=== PATIENT | male | born 1980 | race Caucasian/White ===

== ENCOUNTER 2020-08-10 17:23 | Emergency (ER) | payer OTHER, SELFPAY ==
--- NOTE | ~2020-08-10 | XR_ITS ---
EXAMINATION: XR abdomen/kub 1V; CT abdomen pelvis wo con DATE: 08/10/2020 18:04 INDICATION: Right flank pain TECHNIQUE: 1. Computed tomography (CT) of the abdomen and pelvis was performed without intravenous contrast. Aut omated exposure control and iterative reconstruction technique were employed. The dose-length product was 340.03 mGy-cm. 2. Supine AP view of the abdomen and pelvis was obtained. COMPARISON: None FINDINGS: CT: Mild discoid atelectasis at the lingula. Heart size is normal. No pericardial or pleural effusion. Li lorna, gallbladder, spleen, pancreas and bilateral adrenal glands are normal. 1 mm nonobstructing stone in a lower pole calyx of the right kidney. Bilateral kidneys and ureters are otherwise normal with n o hydronephrosis or other urolithiasis. There is moderate colonic diverticulosis with a sigmoid predominance. There is no adjacent inflammatory change to suggest diverticulitis. Small bowel and appendix are normal.. Bladder is normal. Small right and moderate-sized left fat-containing bila teral inguinal hernias. No free intraperitoneal gas or fluid. No pathologically enlarged abdominal or pelvic lymphadenopathy. Mild lumbar dextroscoliosis. KUB: The tiny stone at the lower pole of the right kidney is unable to be distinguished on the plain radio graphs likely due to its small size. Phlebolith in the right hemipelvis. Bone island at the left post erior iliac spine. Normal bowel gas pattern. IMPRESSION: 1. 1 mm nonobstructing right renal stone. No other acute and intra-abdominal/pelvic process. 2. Moderate diverticulosis. 3. Normal appendix. Reviewed, dictated and finalized at [facility]. STIC SPECIALIST IMPRESSION: 1. 1 mm nonobstructing right renal stone. No other acute and intra-abdominal/pe lvic process. 2. Moderate diverticulosis. 3. Normal appendix.
--- NOTE | ~2020-08-10 | CT_ITS ---
EXAMINATION: CT abdomen pelvis wo con DATE: 08/10/2020 18:04 INDICATION: Right flank pain TECHNIQUE: 1. Computed tomography (CT) of the abdomen and pelvis was performed without intravenous contrast. Aut omated exposure control and iterative reconstruction technique were employed. The dose-length product was 340.03 mGy-cm. 2. Supine AP view of the abdomen and pelvis was obtained. COMPARISON: None FINDINGS: CT: Mild discoid atelectasis at the lingula. Heart size is normal. No pericardial or pleural effusion. Li lorna, gallbladder, spleen, pancreas and bilateral adrenal glands are normal. 1 mm nonobstructing stone in a lower pole calyx of the right kidney. Bilateral kidneys and ureters are otherwise normal with n o hydronephrosis or other urolithiasis. There is moderate colonic diverticulosis with a sigmoid predo minance. There is no adjacent inflammatory change to suggest diverticulitis. Small bowel and appendix are normal.. Bladder is normal. Small right and moderate-sized left fat-containing bilateral inguina l hernias. No free intraperitoneal gas or fluid. No pathologically enlarged abdominal or pelvic lymph adenopathy. Mild lumbar dextroscoliosis. KUB: The tiny stone at the lower pole of the right kidney is unable to be distinguished on the plain radio graphs likely due to its small size. Phlebolith in the right hemipelvis. Bone island at the left post erior iliac spine. Normal bowel gas pattern. IMPRESSION: 1. 1 mm nonobstructing right renal stone. No other acute intra-abdominal/pelvic process. 2. Moderate diverticulosis. 3. Normal appendix. Reviewed, dictated and finalized at [facility]. TASTER
[2020-08-10 17:27] VITALS: BP 138/87; PULSE 87; RESP 16; TEMP 36.5; O2SAT 100
[2020-08-10 17:44] LABS: Basophils Absolute Auto 0.1 K/mm3 (0.0-0.1); Basophils Percent Auto 1.3 % (0.2-1.2); Eosinophils Absolute Auto 0.4 K/mm3 (0-0.3); Hematocrit 48.5 % (42.0-52.0); Hemoglobin 16.4 g/dL (14.0-18.0); Immature Granulocyte Absolute 0.08 K/mm3 (0.00-0.031); Immature Granulocyte Percent A 0.9 % (0-0.5); Lymphocytes Absolute Auto 2.56 K/mm3 (0.9-3.2); Lymphocytes Percent Auto 29.2 % (18.3-44.2); Mean Corpuscular HGB Conc 33.8 g/dl (32-36); Mean Corpuscular Hemoglobin 29.7 pg (26-34); Mean Corpuscular Volume 87.7 fl (80-100); Mean Platelet Volume 9.1 fl (7.4-10.4); Monocytes Percent Auto 10.8 % (2.6-8.5); Neutrophils Absolute Auto 4.7 K/mm3 (1.3-6.7); Neutrophils Percent Auto 53.8 % (45.5-73.1); Platelet Count Result 364 k/mm3 (150-375); Red Blood Count 5.53 M/mm3 (4.6-6.20); Red Cell Distribution Width 12.9 % (11.5-14.5); White Blood Count 8.8 K/mm3 (4.5-10.0)
[2020-08-10 17:48] LABS: Add Urine Microscopic? YES; Appearance Urine Clear (Clear); Bilirubin Urine Negative (Negative); Blood Urine 1+ (Negative); Color Urine Yellow (Yellow); Glucose Urine UA Negative (Negative); Ketones Urine Negative (Negative); Leukocyte Esterase Ur Negative LEU/UL (Negative); Nitrate Urine Negative (Negative); Protein Urine Negative (Negative); RBC Urine 0-2 /hpf (0-2); Specific Grav Ur 1.019 (1.001-1.035); Urobilinogen Urine Negative mg/dL (<2.0); WBC Urine 0-3 /hpf
--- NOTE | 2020-08-10 17:48 | ED.BACK ---
HPI - Back Pain/Injury General Chief Complaint: Abdominal Pain Stated Complaint: flank pain Time Seen by Provider: 08/10/20 17:36 Source: patient Mode of arrival: ambulatory Limitations: no limitations History of Present Illness HPI Narrative: This patient is a 40 year old male who presents for evaluation of right lower back pain. He states he has been having this pain intermittently for 1 month, and the pain became constant on Wednesday. He is unsure of any exacerbating factors. He has associated nausea and hot flashes. He denies any urinary complaints. He has not taken anything for pain since yesterday. HE states he has been trying to be evaluated for this pain in [facility] for 1 month and he was in the ER yesterday. His pain is currently 02/27. MD elicited complaint: back pain Timing: constant Location: right flank Radiation: abdomen (right lower abdomen) Related Data Allergies Allergy/AdvReac Type Severity Reaction Status Date / Time No Known Allergies Allergy Mild Verified 08/10/20 17:37 Review of Systems Review of Systems: All systems reviewed & are unremarkable except as noted in HPI and below Constitutional: Constitutional: Denies chills and Denies fever(s) Cardiovascular: Cardiovascular: Denies chest pain Respiratory: Respiratory: Denies cough and Denies dyspnea Gastrointestinal: Gastrointestinal: Reports abdominal pain, Denies diarrhea, Reports nausea and Denies vomiting Genitourinary: Genitourinary: Denies hematuria and Denies urinary frequency Musculoskeletal: Musculoskeletal: Reports back pain [facility] Past Medical History Medical History (Updated 08/10/20 @ 18:42 by Alesia Sandra MD) Diverticulitis History of esophageal dilatation Surgical History Surgical History (Updated 08/10/20 @ 17:52 by Alesia Sandra MD) H/O colonoscopy Social History Social History (Updated 08/10/20 @ 17:53 by Alesia Sandra MD) Smoking status: Current every day smoker Alcohol intake: current Alcohol use details: occasionally Substance use type: marijuana and methamphetamine Last use: meth 3 days ago, Gender identity (if verbalized by the patient): Male Exam Const: General: no acute distress and alert Orientation/consciousness: patient oriented x3 Eyes: EOM: EOMs intact bilaterally Resp: Effort & Inspection: normal respiratory effort, no retractions and no use of accessory muscles Auscultation: clear to auscultation bilaterally Cardio: Rate: regular rate Rhythm: regular rhythm Heart sounds: no murmurs GI: GI Palp: Yes Soft to palpation, No Tenderness to palpation present (GI) and No Guarding due to palpation present (GI) Auscultation: normal bowel sounds Back/Spine/Pelvis: Back: no CVA tenderness Skin: General skin exam: normal color Rashes: no rashes Neuro: General: patient oriented x3 and moves all extremities Course Reevaluation(s) Reevaluation #1: I discussed with patient CT results. Will discharge home for his musculoskeletal pain. Date: 08/10/20 Time: 18:41 Vital Signs Vital signs: Vital Signs Temperature 97.7 F 08/10/20 17:27 Pulse Rate 87 08/10/20 17:27 Respiratory Rate 16 08/10/20 17:27 Blood Pressure 138/87 08/10/20 17:27 Pulse Oximetry 100 08/10/20 17:27 Temperature 97.7 F 08/10/20 17:27 Pulse Rate 87 08/10/20 17:27 Respiratory Rate 16 08/10/20 17:27 Blood Pressure 138/87 08/10/20 17:27 Pulse Oximetry 100 08/10/20 17:27 MDM - Back Pain/Injury Lab Data Attestation: I reviewed the patient's lab results. Result diagrams: 08/10/20 17:38 08/10/20 17:38 Labs: Lab Results 08/10/20 08/10/20 08/10/20 Range/Units 17:38 17:38 17:38 WBC 8.8 (4.5-10.0) K/mm3 RBC 5.53 (4.6-6.20) M/mm3 Hgb 16.4 (14.0-18.0) g/dL Hct 48.5 (42.0-52.0) % MCV 87.7 (80-100) fl MCH 29.7 (26-34) pg MCHC 33.8 (32-36) g/dl RDW 12.9 (11.5-14.5) % Plt Count 364
[2020-08-10 17:56] LABS: Alanine Aminotransferase 40 U/L (4-50); Albumin Level 4.4 g/dL (3.5-5.1); Alkaline Phosphatase 63 U/L (38-126); Anion Gap 10 mmol/L (8-16); Aspartate Amino Transferase 30 U/L (17-59); Bilirubin,Total 0.5 mg/dL (0.2-1.3); Blood Urea Nitrogen 12 mg/dL (9-20); Calcium 9.4 mg/dL (8.4-10.2); Carbon Dioxide 26 mmol/L (22-30); Chloride 104 mmol/L (98-107); Estimated CRCL calculation 109 ml/min; Estimated Glomerular Filt Rate > 60; Glucose 117 mg/dL (75-110); Lipase 68 U/L (23-300); Potassium 4.1 mmol/L (3.4-5.0); Sodium 140 mmol/L (137-145)
[2020-08-10 18:52] VITALS: BP 124/79; PULSE 94; RESP 15; O2SAT 100
== END 2020-08-10 18:53 | disposition home or self-care (01) ==
PROVIDERS: Emergency Medicine; Emergency Provider General Practice
DX: M54.5 Low back pain (principal); N20.0 Calculus of kidney; K57.90 Diverticulosis of intestine, part unspecified, without perforation or abscess without bleeding; F17.200 Nicotine dependence, unspecified, uncomplicated
CPT/HCPCS: 36415; 74018; 74176; 80053; 81001; 83690; 85025; 96365; 99284; J0131

== ENCOUNTER 2020-09-06 14:51 | Emergency (ER) | payer OTHER, SELFPAY ==
--- NOTE | ~2020-09-06 | XR_ITS ---
XR abdomen/kub 1V 09/06/2020 16:55 INDICATION: The stones TECHNIQUE: KUB COMPARISON: None FINDINGS: Bowel gas pattern is normal. There is no evidence of free air, mass, organomegaly, ascites or obstruction. No abnormal calculi are seen. The bones appear intact. IMPRESSION: 1: No acute abdominal abnormality identified. Reviewed, dictated and finalized at location A. AGNETIST
--- NOTE | ~2020-09-06 | CT_ITS ---
EXAMINATION: CT abdomen pelvis wo con EXAM DATE: 09/06/2020 16:44 INDICATION: Flank pain. Known kidney stone. TECHNIQUE: Spiral CT of the abdomen and pelvis was performed without contrast. Axial, coronal and sag ittal images were reviewed. The dose-length product (DLP) for this examination was 318.22 mGy-cm. T he exposure was tailored according to patient size (auto mA exposure control), and iterative reconstr uction (ASIR) was used as additional dose reduction technique. Comparison is made to prior examinatio n from 08/10/2020. FINDINGS: Punctate right inferior calyceal stone. No ureteral stone or hydronephrosis. The prostate is unremarkable. The bladder is unremarkable. The liver, spleen, adrenal glands and pancreas are un remarkable. Gallbladder is unremarkable. No biliary obstruction. There is no retroperitoneal or pe lvic lymphadenopathy. Small left inguinal fat-containing hernia. The appendix is normal. The stomach and small bowel are unremarkable. Moderately distended rectal v renetta at 7 cm. There is moderate scattered colonic diverticulosis. There is no adjacent inflammatory change to suggest diverticulitis. No free intraperitoneal gas. The heart is normal in size. There are no pericardial or pleural effusions. The lung bases are unremarkable. There are no osteoblasti c or osteolytic lesions identified. IMPRESSION: 1. Punctate right nephrolithiasis. No hydronephrosis or acute findings. 2. Moderate scattered colonic diverticulosis. Reviewed, dictated and finalized at location A. OMER SERVICE CORRESPONDENCE CLERK
[2020-09-06 14:55] VITALS: BP 143/96; PULSE 101; RESP 18; TEMP 36.4; O2SAT 100
[2020-09-06 15:27] LABS: Basophils Absolute Auto 0.1 K/mm3 (0.0-0.1); Basophils Percent Auto 0.9 % (0.2-1.2); Eosinophils Absolute Auto 0.5 K/mm3 (0-0.3); Eosinophils Percent Auto 4.2 % (0-4.4); Hematocrit 53.2 % (42.0-52.0); Immature Granulocyte Absolute 0.09 K/mm3 (0.00-0.031); Immature Granulocyte Percent A 0.8 % (0-0.5); Lymphocytes Absolute Auto 2.82 K/mm3 (0.9-3.2); Lymphocytes Percent Auto 25.9 % (18.3-44.2); Mean Corpuscular HGB Conc 33.8 g/dl (32-36); Mean Corpuscular Hemoglobin 29.9 pg (26-34); Mean Corpuscular Volume 88.4 fl (80-100); Mean Platelet Volume 9.2 fl (7.4-10.4); Monocytes Absolute Auto 0.7 K/mm3 (0.1-0.6); Monocytes Percent Auto 6.6 % (2.6-8.5); Neutrophils Absolute Auto 6.7 K/mm3 (1.3-6.7); Neutrophils Percent Auto 61.6 % (45.5-73.1); Platelet Count Result 385 k/mm3 (150-375); Red Blood Count 6.02 M/mm3 (4.6-6.20); Red Cell Distribution Width 12.4 % (11.5-14.5); White Blood Count 10.9 K/mm3 (4.5-10.0)
[2020-09-06 15:31] LABS: Add Urine Microscopic? YES; Appearance Urine Clear (Clear); Bacteria Urine Trace /hpf; Bilirubin Urine Negative (Negative); Blood Urine 1+ (Negative); Color Urine Yellow (Yellow); Glucose Urine UA Negative (Negative); Ketones Urine Negative (Negative); Leukocyte Esterase Ur Negative LEU/UL (Negative); Mucus Urine Moderate /lpf; Nitrate Urine Negative (Negative); Protein Urine 1+ mg/dL (Negative); Specific Grav Ur 1.028 (1.001-1.035); Urobilinogen Urine Negative mg/dL (<2.0); WBC Urine 0-3 /hpf
[2020-09-06 15:39] LABS: Alanine Aminotransferase 39 U/L (4-50); Albumin Level 4.6 g/dL (3.5-5.1); Alkaline Phosphatase 64 U/L (38-126); Anion Gap 12 mmol/L (8-16); Aspartate Amino Transferase 31 U/L (17-59); Bilirubin,Total 0.4 mg/dL (0.2-1.3); Blood Urea Nitrogen 13 mg/dL (9-20); Calcium 9.7 mg/dL (8.4-10.2); Carbon Dioxide 24 mmol/L (22-30); Chloride 104 mmol/L (98-107); Estimated CRCL calculation 109 ml/min; Estimated Glomerular Filt Rate > 60; Glucose 153 mg/dL (75-110); Lipase 61 U/L (23-300); Potassium 3.8 mmol/L (3.4-5.0); Sodium 140 mmol/L (137-145)
[2020-09-06] MEDS: SODIUM CHLORIDE 0.9% IV 1,000 ML 999 ML IV CONT (16:29)
[2020-09-06] MEDS: ONDANSETRON INJ 4 MG/2 ML VIAL IV PUSH (16:29)
[2020-09-06 16:31] VITALS: BP 134/94; PULSE 78; RESP 14; O2SAT 98
--- NOTE | 2020-09-06 16:53 | PC.NURSE ---
Pt to CT scan via stretcher.
[2020-09-06 17:33] VITALS: BP 139/90; PULSE 87; RESP 15; O2SAT 100
--- NOTE | 2020-09-06 17:51 | ED.ABDPAIN ---
HPI - Abdominal Pain General Chief Complaint: Abdominal Pain <Ramiro Dominguez PA-C - Last Filed: 09/06/20 17:55> Stated Complaint: kidney stone pain <Ramiro Dominguez PA-C - Last Filed: 09/06/20 17:55> Time Seen by Provider: 09/06/20 15:18 <Ramiro Dominguez PA-C - Last Filed: 09/06/20 17:55> Source: patient and old records reviewed <Ramiro Dominguez PA-C - Last Filed: 09/06/20 17:55> Mode of arrival: ambulatory <Ramiro Dominguez PA-C - Last Filed: 09/06/20 17:55> Limitations: no limitations <STEPHANIE Galvez Last Filed: 09/06/20 17:55> History of Present Illness HPI narrative: Patient is a 40-year-old male who presents to emergency department for evaluation of right flank pain noting aching pain in the right flank patient notes that the pain intensified over the last several days with history of urolithiasis had similar occurrence in the past has not followed with urology yet patient notes some nausea patient denies rectal bleeding melena hematuria or URI symptoms <Ramiro Dominguez PA-C - Last Filed: 09/06/20 17:55> Related Data Allergies/Adverse Reactions: Allergies Allergy/AdvReac Type Severity Reaction Status Date / Time No Known Allergies Allergy Mild Verified 08/10/20 17:37 <Ramiro Dominguez PA-C - Last Filed: 09/06/20 17:55> Review of Systems Review of Systems: All systems reviewed & are unremarkable except as noted in HPI and below <Ramiro Dominguez PA-C - Last Filed: 09/06/20 17:55> [facility] Past Medical History Medical History: Medical History Diverticulitis History of esophageal dilatation <STEPHANIE Galvez Last Filed: 09/06/20 17:55> Surgical History Surgical History: Surgical History H/O colonoscopy <STEPHANIE Galvez Last Filed: 09/06/20 17:55> Social History Social History: Social History Smoking status: Current every day smoker Alcohol intake: current Substance use type: marijuana and methamphetamine Last use: meth 3 days ago, Gender identity (if verbalized by the patient): Male <Ramiro Dominguez PA-C - Last Filed: 09/06/20 17:55> Exam Narrative: Exam Narrative: GENERAL: Well-appearing, well-nourished, and in no acute distress. HEAD: Normocephalic, atraumatic. EYES: PERRLA and EOMI. ENT: Nares clear, no rhinorrhea or epistaxis. Mucous membranes moist. CHEST: Clear to auscultation. No respiratory distress. No wheezes rales or rhonchi HEART: Regular rate and rhythm. No murmur heard. Normal peripheral pulses. ABDOMEN: Soft, nontender, nondistended EXTREMITIES: Normal range of motion. No edema. SKIN: Warm, dry, no rash. NEURO: No focal deficits. Alert and oriented x3. PSYCH: Normal mood and affect. <Ramiro Dominguez PA-C - Last Filed: 09/06/20 17:55> Course Course Emergency Course: Patient in the room aware of case findings treatment plan diagnosis felt appropriate for outpatient reevaluation <Ramiro Dominguez PA-C - Last Filed: 09/06/20 17:55> Vital Signs Vital signs: Vital Signs Temperature 36.4 C L 09/06/20 14:55 Pulse Rate 101 H 09/06/20 14:55 Respiratory Rate 18 09/06/20 14:55 Blood Pressure 143/96 H 09/06/20 14:55 Pulse Oximetry 100 09/06/20 14:55 Temperature 36.4 C L 09/06/20 14:55 Pulse Rate 87 09/06/20 17:33 Respiratory Rate 15 09/06/20 17:33 Blood Pressure 139/90 09/06/20 17:33 Pulse Oximetry 100 09/06/20 17:33 <Ramiro Dominguez PA-C - Last Filed: 09/06/20 17:55> Vital Signs Temperature 36.4 C L 09/06/20 14:55 Pulse Rate 101 H 09/06/20 14:55 Respiratory Rate 18 09/06/20 14:55 Blood Pressure 143/96 H 09/06/20 14:55 Pulse Oximetry 100 09/06/20 14:55 Temperature 36.4 C L 09/06/20 14:55 Pulse Rate 87 09/06/20 17:33 Respira
[2020-09-06 18:40] VITALS: BP 133/87; PULSE 80; RESP 14; O2SAT 100
== END 2020-09-06 18:30 | disposition home or self-care (01) ==
PROVIDERS: Family Medicine; Emergency Provider Emergency Medicine
DX: N20.0 Calculus of kidney (principal); F17.200 Nicotine dependence, unspecified, uncomplicated; K57.90 Diverticulosis of intestine, part unspecified, without perforation or abscess without bleeding
CPT/HCPCS: 36415; 74018; 74176; 80053; 81001; 83690; 85025; 96361; 96365; 96375; 99284; J0131; J2405; J7030